=== PATIENT | male | born 1970 | race Caucasian/White ===

== ENCOUNTER 2021-09-21 16:45 | Emergency (ER) | payer OTHER, SELFPAY ==
--- NOTE | 2021-09-21 16:48 | ED.DENTAL ---
HPI - Dental/Oral General Chief complaint: Dental/Oral Stated complaint: Tooth pain Time Seen by Provider: 09/21/21 16:48 Source: patient and RN notes reviewed History of Present Illness HPI Narrative: Patient is a 51-year-old male who presents the urgent care with complaints of upper dental pain. 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 The dental school advised him to come to the urgent care to get placed on antibiotic . Patient states has been taking Tylenol and ibuprofen. Denies of any fever, chills, nausea or vomiting. No other acute complaints. No acute distress noted. Patient aware of the plan of care. Some parts of this dictation were generated by voice recognition software and may contain typographical and/or grammatical inaccuracies. Related Data Allergies Allergy/AdvReac Type Severity Reaction Status Date / Time No Known Allergies Allergy Verified 09/21/21 17:05 Review of Systems Review of Systems: CONSTITUTIONAL: Denies fever, chills, or sweats. EYES: Denies visual changes, redness, or discharge. ENT: Denies rhinorrhea, congestion, sore throat, or otalgia. Reports of upper dental pain and swelling CARDIOVASCULAR: Denies chest pain, palpitations, or edema. RESPIRATORY: Denies cough or dyspnea. GASTROINTESTINAL: Denies abdominal pain, nausea, vomiting, or diarrhea. GENITOURINARY: Denies dysuria or hematuria. SKIN: Denies rash or itching. MUSCULOSKELETAL: Denies back pain, joint pain, or myalgia. NEUROLOGIC: Denies headache, numbness, or weakness. All other systems reviewed are negative, except as documented in HPI. PMFSH Comments At the time of my signature, I reviewed and agree with the nursing past medical, surgical, social, and family history. There is no relevant family history pertinent to the patient complaint. Exam Narrative: GENERAL: This is a well-nourished, well-developed patient, in no apparent distress. HEAD: normocephalic, atraumatic. EYES: PERRL. Sclera clear/white. Vision is grossly intact. EARS: External ears normal NOSE: External nose normal with no obvious nasal discharge, nares without redness, no rhinorrhea. THROAT: Mucous membranes moist, posterior pharynx clear. DENTAL: Trench mouth, multiple carious lesions to the upper and lower dentition. Avulsed molars at the gumline to the right upper with surrounding erythema and edema NECK: Neck supple CARDIOVASCULAR: Regular rate and rhythm without murmurs, gallops, or rubs. RESPIRATORY: Clear to auscultation. Breath sounds equal bilaterally. No wheezes, rales, or rhonchi. SKIN: warm, intact with no suspicious lesions or rash, good texture and turgor. NEURO: awake, alert, and oriented to person, place and time. There were no obvious focal neurologic abnormalities. EXTREMITIES: No clubbing, cyanosis, or edema. Course Course Level of Care: Express Care Visit Vital Signs Vital signs: Vital Signs Temperature 98.6 F 09/21/21 16:52 Pulse Rate 81 09/21/21 16:52 Respiratory Rate 16 09/21/21 16:52 Blood Pressure 159/96 H 09/21/21 16:52 Pulse Oximetry 98 09/21/21 16:52 Temperature 98.6 F 09/21/21 16:52 Pulse Rate 81 09/21/21 16:52 Respiratory Rate 16 09/21/21 16:52 Blood Pressure 159/96 H 09/21/21 16:52 Pulse Oximetry 98 09/21/21 16:52 Reviewed-patient is informed that they may have pre-hypertension or hypertension based on a blood pressure reading in the department. I recommend the patient call the primary care provider listed on their discharge instructions or a physician of their choice this week to arrange follow-up for further evaluation of possible pre-hypertension or hypertension. MDM - Dental/Oral MDM Narrative Medical decision making narrative: Advised patient complete the oral antibiotic regimen as prescribed. Be sure to eat and drink with the medication. Increase your water intake. Use the prescription mouthwash as directed.
[2021-09-21 16:52] VITALS: BP 159/96; PULSE 81; RESP 16; TEMP 37; O2SAT 98
== END 2021-09-21 17:20 | disposition home or self-care (01) ==
PROVIDERS: Emergency Provider Nurse Practitioner Family; PCP Internal Medicine
DX: K04.7 Periapical abscess without sinus (principal); K02.9 Dental caries, unspecified
CPT/HCPCS: 99213; G0463

== ENCOUNTER 2022-07-04 14:02 | Emergency (ER) | payer OTHER, SELFPAY ==
--- NOTE | 2022-07-04 14:05 | ED.NAVMDI ---
HPI - Nausea/Vomiting/Diarrhea General Stated complaint: abdo pains headache diarrhea Time Seen by Provider: 07/04/22 14:05 Source: patient and RN notes reviewed History of Present Illness HPI Narrative: Patient is a 52-year-old male who presents to urgent care requesting a work note due to his recent illness of nausea, vomiting, abdominal pain and diarrhea. Patient states the symptoms started late Saturday evening and have since resolved. Patient states that when he misses 3 days of work, he needs a work note. Patient is currently denying of any of fever, nausea, vomiting, diarrhea or abdominal pain. Patient states that he initially took Tylenol but has otherwise not taken anything [id number] for his symptoms. No other acute complaints. No acute distress noted. Patient aware of the plan of care. Some parts of this dictation were generated by voice recognition software and may contain typographical and/or grammatical inaccuracies. Related Data Home Medications Medication Instructions Recorded Confirmed No Home Medications 07/04/22 07/04/22 Allergies Allergy/AdvReac Type Severity Reaction Status Date / Time No Known Allergies Allergy Verified 07/04/22 14:17 Review of Systems Review of Systems: CONSTITUTIONAL: Denies fever, chills, or sweats. EYES: Denies visual changes, redness, or discharge. ENT: Denies rhinorrhea, congestion, sore throat, or otalgia. CARDIOVASCULAR: Denies chest pain, palpitations, or edema. RESPIRATORY: Denies cough or dyspnea. GASTROINTESTINAL: Denies abdominal pain, nausea, vomiting, or diarrhea. GENITOURINARY: Denies dysuria or hematuria. SKIN: Denies rash or itching. MUSCULOSKELETAL: Denies back pain, joint pain, or myalgia. NEUROLOGIC: Denies headache, numbness, or weakness. All other systems reviewed are negative, except as documented in HPI. PMFSH Comments At the time of my signature, I reviewed and agree with the nursing past medical, surgical, social, and family history. There is no relevant family history pertinent to the patient complaint. Exam Narrative: GENERAL: This is a well-nourished, well-developed patient, in no apparent distress. HEAD: normocephalic, atraumatic. EYES: PERRL. Sclera clear/white. Vision is grossly intact. EARS: External ears normal NOSE: External nose normal with no obvious nasal discharge, nares without redness, no rhinorrhea. THROAT: Mucous membranes moist NECK: Neck supple GASTROINTESTINAL: Abdomen soft, non-tender, nondistended. Bowel sounds are hyperactive. No guarding. SKIN: warm, intact with no suspicious lesions or rash, good texture and turgor. NEURO: awake, alert, and oriented to person, place and time. There were no obvious focal neurologic abnormalities. EXTREMITIES: No clubbing, cyanosis, or edema. Course Course Level of Care: Express Care Visit Vital Signs Vital signs: Vital Signs Temperature 98.5 F 07/04/22 14:06 Pulse Rate 94 07/04/22 14:06 Respiratory Rate 18 07/04/22 14:06 Blood Pressure 134/96 H 07/04/22 14:06 Pulse Oximetry 98 07/04/22 14:06 Oxygen Delivery Room Air 07/04/22 14:06 Temperature 98.5 F 07/04/22 14:06 Pulse Rate 94 07/04/22 14:06 Respiratory Rate 18 07/04/22 14:06 Blood Pressure 134/96 H 07/04/22 14:06 Pulse Oximetry 98 07/04/22 14:06 Oxygen Delivery Room Air 07/04/22 14:06 Reviewed- Patient is informed that they may have pre-hypertension or hypertension based on a blood pressure reading in the department. I recommend the patient call the primary care provider listed on their discharge instructions or a physician of their choice this week to arrange follow-up for further evaluation of possible pre-hypertension or hypertension. MDM - Nausea/Vomiting/Diarrhea MDM Narrative Medical decision making narrative: advised patient to increase water intake and eat a bland diet until symptoms have completely resolved. If you have any recurrence of diarrhea, nausea, vomit
[2022-07-04 14:06] VITALS: BP 134/96; PULSE 94; RESP 18; TEMP 36.9; O2SAT 98
[2022-07-04 14:16] VITALS: BP 134/96; PULSE 94; RESP 18; TEMP 36.9; O2SAT 98
== END 2022-07-04 14:25 | disposition home or self-care (01) ==
PROVIDERS: Emergency Provider Nurse Practitioner Family; PCP Family Medicine
DX: R19.7 Diarrhea, unspecified (principal)
CPT/HCPCS: 99211; G0463

== ENCOUNTER 2022-07-28 18:07 | Emergency (ER) | payer OTHER, SELFPAY ==
--- NOTE | 2022-07-28 18:08 | ED.URI ---
HPI - URI/Sore Throat General Chief Complaint: Upper Respiratory Infection Stated Complaint: throat aches Time Seen by Provider: 07/28/22 18:09 Source: patient and RN notes reviewed History of Present Illness HPI Narrative: Patient is a 52-year-old male who presents to the Urgent Care with complaints of body aches, headache, congestion. Patient states that he feels better tonight after symptoms started approximately 3 days ago. Patient denies any fevers, nausea or vomiting. Patient has been using cough drops and Tylenol. No other acute complaints. No acute distress. Patient aware. Some parts of this dictation were generated by voice recognition software and may contain typographical and/or grammatical inaccuracies. Related Data Home Medications Medication Instructions Recorded Confirmed No Home Medications 07/04/22 07/04/22 Allergies Allergy/AdvReac Type Severity Reaction Status Date / Time No Known Allergies Allergy Verified 07/04/22 14:17 Review of Systems Review of Systems: CONSTITUTIONAL: Denies fever, chills, or sweats. EYES: Denies visual changes, redness, or discharge. ENT: Reports of mild congestion, postnasal drainage CARDIOVASCULAR: Denies chest pain, palpitations, or edema. RESPIRATORY: Denies cough or dyspnea. GASTROINTESTINAL: Denies abdominal pain, nausea, vomiting, or diarrhea. GENITOURINARY: Denies dysuria or hematuria. SKIN: Denies rash or itching. MUSCULOSKELETAL: Denies back pain, joint pain, or myalgia. NEUROLOGIC: reports of headaches All other systems reviewed are negative, except as documented in HPI. PMFSH Comments At the time of my signature, I reviewed and agree with the nursing past medical, surgical, social, and family history. There is no relevant family history pertinent to the patient complaint. Exam Narrative: GENERAL: This is a well-nourished, well-developed patient, in no apparent distress. HEAD: normocephalic, atraumatic. EYES: PERRL. Sclera clear/white. Vision is grossly intact. EARS: External ears normal, auditory canals clear and without drainage, TMs normal without perforation. Hearing grossly intact. NOSE: External nose normal with no obvious nasal discharge, nares without redness, clear rhinorrhea. THROAT: Mucous membranes moist, posterior pharynx clear. moderate postnasal drainage. NECK: Neck supple, non-tender without lymphadenopathy, masses or thyromegaly. CARDIOVASCULAR: Regular rate and rhythm without murmurs, gallops, or rubs. RESPIRATORY: Clear to auscultation. Breath sounds equal bilaterally. No wheezes, rales, or rhonchi. SKIN: warm, intact with no suspicious lesions or rash, good texture and turgor. NEURO: awake, alert, and oriented to person, place and time. There were no obvious focal neurologic abnormalities. EXTREMITIES: No clubbing, cyanosis, or edema. Course Course Level of Care: Express Care Visit Vital Signs Vital signs: Vital Signs Temperature 97.3 F L 07/28/22 18:16 Pulse Rate 101 H 07/28/22 18:16 Respiratory Rate 16 07/28/22 18:16 Blood Pressure 142/81 H 07/28/22 18:16 Pulse Oximetry 100 07/28/22 18:16 Oxygen Delivery Room Air 07/28/22 18:16 Temperature 97.3 F L 07/28/22 18:16 Pulse Rate 101 H 07/28/22 18:16 Respiratory Rate 16 07/28/22 18:16 Blood Pressure 142/81 H 07/28/22 18:16 Pulse Oximetry 100 07/28/22 18:16 Oxygen Delivery Room Air 07/28/22 18:16 reviewed- Patient is informed that they may have pre-hypertension or hypertension based on a blood pressure reading in the department. I recommend the patient call the primary care provider listed on their discharge instructions or a physician of their choice this week to arrange follow-up for further evaluation of possible pre-hypertension or hypertension. MDM - URI/Sore Throat MDM Narrative Medical decision making narrative: Advised patient to continue [id number] medication for his viral upper respiratory infection. Use Tylenol
[2022-07-28 18:16] VITALS: BP 142/81; PULSE 101; RESP 16; TEMP 36.3; O2SAT 100
== END 2022-07-28 18:31 | disposition home or self-care (01) ==
PROVIDERS: Emergency Provider Nurse Practitioner Family; PCP Family Medicine
DX: J06.9 Acute upper respiratory infection, unspecified (principal)
CPT/HCPCS: 99211; G0463

== ENCOUNTER 2024-04-17 10:17 | Emergency (ER) | payer OTHER, SELFPAY ==
[2024-04-17 10:24] VITALS: BP 146/88; PULSE 85; RESP 16; TEMP 36.6; O2SAT 99
--- NOTE | 2024-04-17 10:43 | ED.URI ---
HPI - URI/Sore Throat General Chief Complaint: Upper Respiratory Infection Stated Complaint: achey/tired/scratchy throat Time Seen by Provider: 04/17/24 10:53 Source: patient and RN notes reviewed Mode of arrival: ambulatory Limitations: no limitations History of Present Illness HPI Narrative: 53-year-old male presents with concern for 5 day history of cough, chest congestion, sinus congestion and pressure. Reports he has taken TheraFlu without relief. He reports aches in general malaise. He reports his girlfriend has similar symptoms. MD elicited complaint: cough and nasal congestion Related Data Allergies Allergy/AdvReac Type Severity Reaction Status Date / Time No Known Allergies Allergy Verified 07/04/22 14:17 Review of Systems Review of Systems: CONSTITUTIONAL: Reports malaise EYES: Denies visual changes, redness, or discharge. ENT: Reports rhinorrhea, congestion, sinus pain and sore throat. CARDIOVASCULAR: Denies chest pain, palpitations, or edema. RESPIRATORY: Reports cough, chest congestion. Denies dyspnea. GASTROINTESTINAL: Denies abdominal pain, nausea, vomiting, diarrhea SKIN: Denies rash or itching. MUSCULOSKELETAL: Reports myalgia. NEUROLOGIC: Denies headache. All systems reviewed & are unremarkable except as noted in HPI and below PMFSH Comments At time of signature, agree with nursing past medical, surgical, social and family history. There is no relevant family history pertinent to the presenting complaint Exam Narrative: GENERAL: Well-appearing, well-nourished, and in no acute distress. HEAD: Normocephalic EYES: PERRLA, conjunctivae clear ENT: Nares clear, turbinates edematous and erythematous, clear discharge. Mucous membranes moist. TM pearly valladares with dull light reflex bilaterally; no tragal tenderness. Oropharynx not erythematous without lesions. Tonsils not enlarged and without exudate, no drooling, no hoarseness, no trismus, uvula midline. NECK: Supple. No lymphadenopathy CHEST: Scattered rhonchi, otherwise clear to auscultation, breath sounds equal. No wheezing, rales, or stridor. No respiratory distress, speaks in full sentences. HEART: Regular rate and rhythm. No murmur heard. SKIN: Warm, dry, no rash. NEURO: Alert and oriented x3. PSYCH: Normal mood and affect Course Course Emergency Course: Patient is aware of diagnosis, understands and agrees to treatment plan. Anticipatory guidance given. Patient agrees to follow-up as directed and is aware of reasons to seek care at the emergency department. Portions of this record may have been created with voice recognition software Level of Care: Express Care Visit Vital Signs Vital signs: Vital Signs Temperature 97.9 F 04/17/24 10:24 Pulse Rate 85 04/17/24 10:24 Respiratory Rate 16 04/17/24 10:24 Blood Pressure 146/88 H 04/17/24 10:24 Pulse Oximetry 99 04/17/24 10:24 Oxygen Delivery Room Air 04/17/24 10:24 Temperature 97.9 F 04/17/24 10:24 Pulse Rate 85 04/17/24 10:24 Respiratory Rate 16 04/17/24 10:24 Blood Pressure 146/88 H 04/17/24 10:24 Pulse Oximetry 99 04/17/24 10:24 Oxygen Delivery Room Air 04/17/24 10:24 Reviewed. MDM - URI/Sore Throat MDM Narrative Medical decision making narrative: Differential diagnosis considered: Voss virus, strep pharyngitis, allergic rhinitis, upper respiratory tract infection, sinusitis, rhinosinusitis, nasopharyngitis. viral pharyngitis, otitis media, otitis externa, pneumonia, bronchitis, viral cough syndrome, viral syndrome, and influenza. Exam findings show no acute concerns or changes; patient is non-toxic appearing and is in no distress. Patient is appropriate for outpatient treatment and follow-up. Lab Data Attestation: I reviewed the patient's lab results. Critical Care Time Critical Care Time Critical Care Time: No Discharge Plan Discharge Clinical Impression: Upper respiratory infection with cough and congestion Patient Dispos
== END 2024-04-17 11:07 | disposition home or self-care (01) ==
PROVIDERS: Emergency Provider Nurse Practitioner
DX: J06.9 Acute upper respiratory infection, unspecified (principal); R05.9 Cough, unspecified; R09.89 Other specified symptoms and signs involving the circulatory and respiratory systems
CPT/HCPCS: 99213; G0463

== ENCOUNTER 2024-07-30 17:10 | Emergency (ER) | payer OTHER, SELFPAY ==
[2024-07-30 17:20] VITALS: BP 129/74; PULSE 96; RESP 20; TEMP 36.9; O2SAT 99
--- NOTE | 2024-07-30 18:05 | ED.URI ---
HPI - URI/Sore Throat General Chief Complaint: Upper Respiratory Infection Stated Complaint: cough/drainage Time Seen by Provider: 07/30/24 17:50 Source: patient, RN notes reviewed and old records reviewed Mode of arrival: ambulatory Limitations: no limitations History of Present Illness HPI Narrative: 54 year old male presents to [facility] care with complaints of 4 days of cough with congestion ans some sore throat. Patient reports that he has taken some Theraflu for his symptoms without resolution.Patient is a little less than a pack a day smoker for many years. Patient reports some nasal congestion also. Patient reports that family member is also ill at this time.. MD elicited complaint: cough and sore throat Onset (ago): day(s) (4) Severity: moderate Able to tolerate fluids by mouth: Yes Treatments prior to arrival: other (theraflu) Related Data Home Medications Medication Instructions Recorded Confirmed atorvastatin 40 mg tablet 40 mg PO QPM 07/30/24 07/30/24 Allergies Allergy/AdvReac Type Severity Reaction Status Date / Time No Known Allergies Allergy Verified 07/30/24 18:07 Review of Systems Review of Systems: CONSTITUTIONAL: Reports malaise, no chills, sweats, or fever. EYES: Denies visual changes, redness, or discharge. ENT: Reports rhinorrhea, congestion, no sinus pain,no otalgia and some sore throat. CARDIOVASCULAR: Denies chest pain, palpitations, or edema. RESPIRATORY: Reports cough.? Denies dyspnea. GASTROINTESTINAL: Denies abdominal pain, nausea, vomiting, diarrhea SKIN: Denies rash or itching. MUSCULOSKELETAL: Denies myalgia. NEUROLOGIC: Denies headache. All systems reviewed & are unremarkable except as noted in HPI and below PMFSH Past Medical History Medical History (Updated 07/31/24 @ 16:18 by Mehreen Rodas NP) Elevated cholesterol History of dental problems Social History Social History (Updated 07/31/24 @ 16:14 by Mehreen Rodas NP) Smoking packs per day: 1 Smoking cigarettes per day: 20.0 Smoking status: Current every day smoker Tobacco type: cigarettes Alcohol intake: unknown Substance use: unknown Gender identity (if verbalized by the patient): Male Comments At time of signature, agree with nursing past medical, surgical, social and family history. There is no relevant family history pertinent to the presenting complaint Exam Narrative: GENERAL: Well-appearing, well-nourished, and in no acute distress. HEAD: Normocephalic EYES: PERRLA, conjunctivae clear ENT: Nares clear, turbinates edematous and erythematous, clear discharge. Mucous membranes moist. TM pearly valladares with dull light reflex bilaterally; no tragal tenderness. Oropharynx erythematous without lesions. Tonsils not enlarged and without exudate, no drooling, no hoarseness, no trismus, uvula midline. NECK: Supple. No lymphadenopathy CHEST: Clear to auscultation, breath sounds equal. No wheezing, rhonchi, rales, or stridor. No respiratory distress, speaks in full sentences. HEART: Regular rate and rhythm. No murmur heard. SKIN: Warm, dry, no rash. NEURO: Alert and oriented x3. PSYCH: Normal mood and affect Course Course Emergency Course: Patient is aware of diagnosis, understands and agrees to treatment plan.? Anticipatory guidance given.? Patient agrees to follow-up as directed and is aware of reasons to seek care at the emergency department. Portions of this record may have been created with voice recognition software Level of Care: Express Care Visit Vital Signs Vital signs: Vital Signs Temperature 36.9 C 07/30/24 17:20 Pulse Rate 96 07/30/24 17:20 Respiratory Rate 20 07/30/24 17:20 Blood Pressure 129/74 07/30/24 17:20 Pulse Oximetry 99 07/30/24 17:20 Oxygen Delivery Room Air 07/30/24 17:20 Temperature 36.9 C 07/30/24 17:20 Pulse Rate 96 07/30/24 17:20 Respiratory Rate 20 07/30/24 17:20 Blood Pressure 129/74 07/30/24 17:20 Pulse Oximetry 99 07/30/24 17:20 Oxygen Delivery Room Air 07/30/24 17:20 Reviewed MDM - URI/Sore Throat MDM Narrative Medical decision making narrative: Differential diagnosis considered: Voss virus, strep pharyngitis, allergic rhinitis, upper respiratory tract infection, sinusitis, rhinosinusitis, nasopharyngitis. viral pharyngitis, otitis media, otitis externa, pneumonia, bronchitis, viral cough syndrome, viral syndrome, and influenza.? Exam findings show no acute concerns or changes; patient is non-toxic appearing and is in no distress.? Patient is appropriate for outpatient treatment and follow-up. Differential Diagnosis Differential diagnosis: Likely upper respiratory infection, sinusitis, viral infection, bronchitis and pharyngitis Medical Records Attestation: I reviewed the patient's medical records. Lab Data Attestation: I reviewed the patient's lab results. Critical Care Time Critical Care Time Critical Care Time: No Discharge Plan Discharge Clinical Impression: URI, acute, Cough Patient Disposition: Home, Self-Care Condition: Stable Instructions: Antibiotic Form, Acute Cough (ED) Additional Instructions: Increase fluids especially juices and water [id number] cough and cold medicine of your choice for your symptoms Steroids as prescribed Claritin, Zyrtec or Ruth daily heat to the face 20-30 minutes 4-6 times a day for pain Salt water gargles, throat lozenges or throat sprays as desired Antibiotic as directed--finished the medication Tylenol or Ibuprofen for any fever or pain. If your symptoms persist, change or worsen significantly before you can contact your personal physician then please, without delay, go to the emergency department for further evaluation. Follow-up with PCP in 7-10 days or sooner if needed Follow up with PCP soon in regards to your blood pressure which is elevated above threshold for referral. Blood pressure above 120/80 may indicate pre-hypertension. 129/74 Prescriptions: New azithromycin 250 mg tablet See Rx Instructions .ROUTE .COMPLEX Qty: 6 0RF Rx Instructions: For 250 mg dose pack: take 500 mg today (day 1), then 250 mg for 4 days (days 2-5) prednisone 20 mg tablet 20 mg PO BID Qty: 10 0RF Rx Instructions: Take evening dose no later than 7:00 p.m. No Action atorvastatin 40 mg tablet 40 mg PO QPM Follow-up/Referrals: PHYSICIAN NOT ON STAFF,NONSTAFF [Primary Care Provider] - Stand Alone Forms: Work/School Release IP Time of Disposition: 18:17 Quality [place] Coma Scale Eyes: Open Verbal: Oriented and Alert Motor: Follows Commands [place] Coma Total Score: 15
== END 2024-07-30 18:20 | disposition home or self-care (01) ==
PROVIDERS: Emergency Provider Registered Nurse
DX: J06.9 Acute upper respiratory infection, unspecified (principal); F17.210 Nicotine dependence, cigarettes, uncomplicated
CPT/HCPCS: 99213; G0463